=== PATIENT | male | born 1960 | race Caucasian/White ===

== ENCOUNTER 2018-07-08 11:13 | Emergency (ER) | payer OTHER ==
--- NOTE | 2018-07-08 11:57 | ED ---
General Adult HPI - General Source: patient, RN notes reviewed, old records reviewed Mode of arrival: EMS Limitations: no limitations <Yunior Hanson - Last Filed: 07/08/18 11:55> <Darcie Gaona - Last Filed: 07/08/18 23:08> - General Chief complaint: Psychiatric Symptoms Stated complaint: EPS eval Time Seen by Provider: 07/08/18 11:20 - History of Present Illness Initial comments: 58-year-old male presents for evaluation of alcohol abuse and suicidal ideation. Patient admits to being a daily drinker. He states he is tired of drinking and has been thinking of committing suicide. Denies any suicide attempt. Denies any other ingestion other than alcohol today. He states his his left, he's lost his job secondary to his alcohol abuse. No physical complaints. He has past medical history of hypertension. (Yunior Hanson) - Related Data Home Medications Medication Instructions Recorded Confirmed Indomethacin [Indocin] 50 mg PO DAILY 07/08/18 07/08/18 Allergies Allergy/AdvReac Type Severity Reaction Status Date / Time Iodinated Contrast- Oral and Allergy Severe Anaphylaxis Verified 07/08/18 11:48 IV Dye iodine Allergy Severe Anaphylaxis Verified 07/08/18 11:48 shellfish derived [Shrimp] Allergy Severe Anaphylaxis Verified 07/08/18 11:48 Review of Systems ROS Other: All systems not noted in ROS Statement are negative. <Yunior Hanson - Last Filed: 07/08/18 11:55> ROS Other: All systems not noted in ROS Statement are negative. <Darcie Gaona - Last Filed: 07/08/18 23:08> ROS Statement: Those systems with pertinent positive or pertinent negative responses have been documented in the HPI. Past Medical History Past Medical History: Asthma, Hypertension Additional Past Medical History / Comment(s): etoh abuse History of Any Multi-Drug Resistant Organisms: None Reported Past Surgical History: Hernia Repair Past Psychological History: No Psychological Hx Reported Smoking Status: Former smoker Past Alcohol Use History: Abuse, Daily, Heavy Past Drug Use History: None Reported <Yunior Hanson - Last Filed: 07/08/18 11:55> General Exam Limitations: no limitations General appearance: alert, in no apparent distress, appears intoxicated Head exam: Present: atraumatic, normocephalic Eye exam: Present: normal appearance, PERRL ENT exam: Present: normal exam. Absent: normal oropharynx, mucous membranes dry Neck exam: Present: normal inspection. Absent: tenderness Respiratory exam: Present: wheezes (Scattered wheezes). Absent: respiratory distress Cardiovascular Exam: Present: regular rate, normal rhythm GI/Abdominal exam: Present: soft, distended. Absent: tenderness, guarding Extremities exam: Present: normal inspection, normal capillary refill. Absent: pedal edema Back exam: Present: normal inspection Neurological exam: Present: alert, oriented X3, CN II-XII intact. Absent: motor sensory deficit Psychiatric exam: Present: depressed, suicidal ideation Skin exam: Present: warm, dry, intact. Absent: cyanosis, diaphoretic <Yunior Hanson - Last Filed: 07/08/18 11:55> Vital Signs 07/08/18 07/08/18 07/08/18 11:42 15:41 18:31 Temperature 99.4 F Pulse Rate 92 96 73 Respiratory 20 16 16 Rate Blood Pressure 175/100 155/85 185/114 O2 Sat by Pulse 96 90 L 98 Oximetry 07/08/18 20:11 Temperature 98.0 F Pulse Rate 91 Respiratory 16 Rate Blood Pressure 190/97 O2 Sat by Pulse 92 L Oximetry Medical Decision Making <Yunior Hanson - Last Filed: 07/08/18 11:55> <Darcie Gaona - Last Filed: 07/08/18 23:08> - Medical Decision Making Patient care was signed out to me by Dr. Hanson at 9 PM. The patient presented intoxicated after an argument with his in which she called police for his erratic behavior. Patient had expressed some passive suicidal thoughts but no specific plan. Patient was evaluated by EPS nurse when sober, decision was made that the patient was stable for discharge home. Patient is to call alcohol detox facility in the morning. Patient contracts to safety, plan for outpatient therapy. (Darcie Gaona) - Lab Data Lab Results 07/08/18 Range/Units 15:15 Urine Opiates Screen Not Detected (NotDetected) Ur Oxycodone Screen Not Detected (NotDetected) Urine Methadone Screen Not Detected (NotDetected) Ur Propoxyphene Screen Not Detected (NotDetected) Ur Barbiturates Screen Not Detected (NotDetected) U Tricyclic Antidepress Not Detected (NotDetected) Ur Phencyclidine Scrn Not Detected (NotDetected) Ur Amphetamines Screen Not Detected (NotDetected) U Methamphetamines Scrn Not Detected (NotDetected) U Benzodiazepines Scrn Not Detected (NotDetected) Urine Cocaine Screen Not Detected (NotDetected) U Marijuana (THC) Screen Not Detected (NotDetected) Disposition <Yunior Hanosn N - Last Filed: 07/08/18 11:55> Is patient prescribed a controlled substance at d/c from ED?: No <Darcie Gaona P - Last Filed: 07/08/18 23:08> Clinical Impression: Alcohol intoxication, Depression Disposition: HOME SELF-CARE Condition: Stable Instructions: Abuse of Alcohol (ED) Referrals: None,Stated [Primary Care Provider] - 1-2 days
[2018-07-08 15:42] VITALS: RESP 16
[2018-07-08 15:43] LABS: Amphetamine Screen,Urine Not Detected (NotDetected); Barbiturate Screen,Urine Not Detected (NotDetected); Benzodiazepines Screen,Urine Not Detected (NotDetected); Cocaine Screen,Urine Not Detected (NotDetected); Methadone Screen, Urine Not Detected (NotDetected); Opiate Screen,Urine Not Detected (NotDetected); Oxycodone Screen, Urine Not Detected (NotDetected); Phencyclidine Screen,Urine Not Detected (NotDetected); Tricyclic Antidepressant,Urine Not Detected (NotDetected); Urn Cannabinoid Scrn Not Detected (NotDetected)
[2018-07-08] MEDS ORDERED: THIAMINE 100 MG TAB PO SCH (17:00)
[2018-07-08] MEDS ORDERED: LORazepam 2 MG/ML INJ IV PRN ×3 (20:34)
[2018-07-08] MEDS ORDERED: THIAMINE 100 MG/ML 2 ML VIAL IM STA (20:34)
[2018-07-08] MEDS ORDERED: amLODIPine 5 MG TAB PO STA (21:44)
[2018-07-08 23:09] VITALS: BP 198/111; PULSE 84; TEMP 98.2
== END 2018-07-08 23:24 | disposition home or self-care (01) ==
LOC: EC 11:13
DX: F32.9 Major depressive disorder, single episode, unspecified (principal); F10.929 Alcohol use, unspecified with intoxication, unspecified; Z79.899 Other long term (current) drug therapy; Z91.048 Other nonmedicinal substance allergy status; Z91.041 Radiographic dye allergy status; Z91.013 Allergy to seafood
CPT/HCPCS: 80306; 99285; 96372; J3411